=== PATIENT | female | born 1980 | race Caucasian/White ===

== ENCOUNTER 2020-01-05 09:46 | Emergency (ER) | payer BC ==
[~2020-01-05] VITALS: Ht 172.7 cm; Wt 52.2 kg
--- NOTE | 2020-01-05 09:48 | NUR ---
PT [id number] FOR WITNESSED SYNCOPAL EPISODE WHILE WAITING IN LINE AT [facility], PT IS AAOX3, NOT IN RESPIRATORY DISTRESS, HOOKED TO [employer]ADER, KEPT RESTED AND COMFORTABLE, WILL CONTINUE TO MONITOR.
--- NOTE | 2020-01-05 09:55 | NUR ---
IV LINE ESTABLISHED BLOOD DRAWN AND SENT TO LAB
[2020-01-05] MEDS ORDERED: TRAZ-257 PO (09:57)
[2020-01-05] MEDS ORDERED: BUPR-96 PO (09:57)
[2020-01-05] MEDS ORDERED: CLON0.1T PO (09:57)
[2020-01-05] MEDS ORDERED: ESCI20TA PO (09:57)
[2020-01-05] MEDS ORDERED: ONDANSETRON HCL/PF 4 MG/2 ML VIAL ONE (09:57)
[2020-01-05] MEDS ORDERED: ONDANSETRON HCL/PF 4 MG/2 ML VIAL IVP ONE (10:00)
[2020-01-05] MEDS ORDERED: IV NS 0.9% 1,000 ML BAG IV ONE (10:00)
[2020-01-05 10:05] LABS: BASOPHILS % (AUTO) 0.7 % (0.0-2.0); EOSINOPHILS % (AUTO) 1.8 % (0.0-6.0); HEMATOCRIT 40 % (33-45); HEMOGLOBIN 13.2 g/dL (11.5-14.8); LYMPHOCYTES # (AUTO) 1.5 /CMM (0.8-4.8); LYMPHOCYTES % (AUTO) 27.3 % (20.0-44.0); MEAN CORPUSCULAR HGB CONC 33 g/dl (31.0-36.0); MEAN CORPUSCULAR VOLUME 88 fL (82-100); MONOCYTES # (AUTO) 0.3 /CMM (0.1-1.30); MONOCYTES % (AUTO) 5.1 % (2.0-12.0); NEUTROPHILS # (AUTO) 3.6 /CMM (1.8-8.9); NEUTROPHILS % (AUTO) 65.1 % (43.0-81.0); PLATELET COUNT (AUTO) 466 /CMM (150-450); RED BLOOD CELL COUNT(AUTO) 4.53 MIL/uL (4.0-5.2); WHITE BLOOD COUNT (AUTO) 5.6 K/uL (4.3-11.0)
--- NOTE | 2020-01-05 10:10 | NUR ---
BASKET SORTER AT BEDSIDE FOR XRAY.
[2020-01-05 10:22] LABS: CALCIUM, SERUM 8.8 mg/dL (8.5-10.1); CARBON DIOXIDE 27 mmol/L (21-32); CHLORIDE 103 mmol/L (98-107); CREATININE 0.8 mg/dL (0.6-1.3); GLUCOSE 167 mg/dL (74-106); POTASSIUM 3.3 mmol/L (3.5-5.1); SODIUM SERUM 139 mmol/L (136-145); UREA NITROGEN, BLOOD 25 mg/dL (7-18)
[2020-01-05 10:31] LABS: BILIRUBIN,DIRECT 0.1 mg/dL (0.0-0.2)
[2020-01-05 10:32] LABS: ALANINE AMINOTRANSFERASE 32 U/L (12-78)
[2020-01-05 10:35] LABS: BILIRUBIN,TOTAL 0.4 mg/dL (0.2-1.0)
[2020-01-05 10:36] LABS: ALBUMIN 3.5 g/dL (3.4-5.0); ALKALINE PHOSPHATASE 78 U/L (46-116); TOTAL PROTEIN, SERUM 7.2 g/dL (6.4-8.2)
[2020-01-05 10:41] LABS: ASPARTATE AMINOTRANSFERASE 19 U/L (15-37)
[2020-01-05 10:50] LABS: MAGNESIUM 1.7 mg/dL (1.8-2.4)
[2020-01-05] MEDS ORDERED: POTASSIUM CHLORIDE 20 MEQ TAB.PRT.SR PO ONE ×2 (11:00→11:14)
[2020-01-05 11:38] VITALS: BP 103/68
--- NOTE | 2020-01-05 11:38 | NUR ---
IV removed. Catheter intact and site benign. Pressure and 4x4 applied to site. No bleeding noted. Patient discharged to home in stable condition. Written and verbal after care instructions given. Patient verbalizes understanding of instruction.
== END 2020-01-05 11:40 | disposition home or self-care (01) ==
LOC: ER 09:51
DX: R55 Syncope and collapse (principal); E86.0 Dehydration; E87.6 Hypokalemia; R94.31 Abnormal electrocardiogram [ECG] [EKG]; F32.9 Major depressive disorder, single episode, unspecified; Z79.899 Other long term (current) drug therapy
CPT/HCPCS: 36415; 71045; 80048; 80076; 83735; 84484; 84702; 85025; 93005; 96361; 96374; 99285; J2405; J7030